=== PATIENT | female | born 2000 | race Caucasian/White ===

== ENCOUNTER 2023-09-15 10:46 | Outpatient (CLI) | payer BC | END 2023-09-15 10:47 | disposition home or self-care (01) | LOC: BICULT 10:46 | PROVIDERS: ATTEND Physician Assistant | DX: N63.15 Unspecified lump in the right breast, overlapping quadrants (principal); N63.25 Unspecified lump in the left breast, overlapping quadrants | CPT/HCPCS: 76642 ==